=== PATIENT | male | born 1955 | race African-American/Black ===

== ENCOUNTER 2023-03-13 15:01 | Emergency (ER) | payer MEDICARE, MEDICAID ==
[~2023-03-13] VITALS: Ht 177.8 cm; Wt 77.0 kg
[~2023-03-13 15:01] MED LIST: ALLO100T MT; AMLO5TAB4 MT; ASPI-864 MT; ATOR80TA MT; HYDR100T26 MT; LISI40TA13 MT; LOPHC2 GT
[2023-03-13 15:10] VITALS: O2SAT 92
[2023-03-13 15:30] VITALS: BP 155/62; PULSE 67; RESP 13; TEMP 97.8
[2023-03-13] MEDS ORDERED: SODIUM CHLORIDE 0.9% 250 ML IV ONE (15:30)
[2023-03-13 16:22] LABS: BASOPHILS % 1.1 % (0.0-2.0); EOSINOPHILS % 5.7 % (0.0-5.0); HEMATOCRIT. 29.3 % (42.0-52.0); HEMOGLOBIN. 9.6 g/dL (14.0-18.0); LYMPHOCYTES % 10.5 % (20.0-50.0); MEAN CORPUSCULAR HEMOGLOBIN 28.7 pg (28.0-32.0); MEAN CORPUSCULAR VOLUME 87.1 fL (80.0-94.0); MONOCYTES % 6.7 % (2.0-8.0); PLATELET 245 x1000/uL (130-400); RED BLOOD CELL COUNT 3.36 mill/uL (4.7-6.1); RED CELL DISTRIBUTION WIDTH 17.7 % (11.6-14.6); WHITE BLOOD COUNT 8.1 x1000/uL (4.5-11.0)
[2023-03-13 16:28] LABS: CHLORIDE 97 mEq/L (98-107); INDEX HEMOLYSI 1 (1-3); INDEX ICTERIC 1 (1-4); INDEX LIPEMIC 1 (1-3); POTASSIUM 3.5 mEq/L (3.5-5.1); SODIUM 134 mEq/L (136-145)
[2023-03-13 16:39] LABS: ALANINE AMINOTRANSFERASE 58 IU/L (13-61); ALBUMIN 2.9 g/dL (3.4-5.0); ASPARTATE AMINOTRANSFERASE 32 IU/L (15-37); BILIRUBIN TOTAL 0.4 mg/dL (0.1-1.0); CALCIUM 8.8 mg/dL (8.5-10.1); CARBON DIOXIDE 30 mEq/L (21-32); GLUCOSE 72 mg/dL (70-105); PROTEIN TOTAL 7.3 g/dL (6.0-8.3); UREA NITROGEN BLOOD 31 mg/dL (7-21)
[2023-03-13 16:48] LABS: CREATININE 7.2 mg/dL (0.6-1.3)
== END 2023-03-13 17:45 | disposition home or self-care (01) ==
LOC: ER 15:01
DX: R42 Dizziness and giddiness (principal); I12.0 Hypertensive chronic kidney disease with stage 5 chronic kidney disease or end stage renal disease; E11.22 Type 2 diabetes mellitus with diabetic chronic kidney disease; N18.6 End stage renal disease
CPT/HCPCS: 99284; 96360; 71045; 80053; 82962; 83605; 83735; 85025; 36415; J7030